=== PATIENT | male | born 1940 | race Caucasian/White ===

== ENCOUNTER 2016-11-13 19:35 | Emergency (ER) | payer MEDICARE, OTHER ==
[2016-11-13 19:52] VITALS: BP 135/61
== END 2016-11-13 20:35 | disposition left against medical advice (07) ==
LOC: ER 19:35
DX: Z53.21 Procedure and treatment not carried out due to patient leaving prior to being seen by health care provider (principal)

== ENCOUNTER 2019-06-26 13:14 | Inpatient (IN) ==
--- NOTE | 2019-06-26 13:20 | ERNOTE ---
Hip Pain HPI - Narrative Date of Service: 06/26/19 Narrative: The patient is a 79 year old male who presents for right hip pain after fall which occurred just [employer]. There are no associated symptoms. The patient reports pain to right hip, 09/17. There are alleviating factors of position. There are aggravating factors of activity or ROM. Previous treatments have included: none. The past medical history includes: anxiety, COPD, depression, HTN, GERD, BPH, seizure and mild mental retardation. The social history is positive for current tobacco use. The patient has had no known ill contacts. Patient states he was walking outside of his home and tripped landing on the cement. Patient denies striking head, LOC or neck pain. - General Time Seen by Provider: 06/26/19 13:18 Source: patient Exam Limitations: no limitations - Pain Score Pain Score #1 Pain Score: 8 - History of Present Illness Timing/Duration: just prior to arrival Hip Pain Location: hip (R) Method of Injury/Prior Injury: fell Modifying Factors - (Improves): Reports: immobilization Modifying Factors - (Worsens): Reports: jarring, movement Associated Symptoms: trouble walking - Immun/Allergies/Home Medications Immunization: IMMUNIZATION HX Immunizations Up to Date Yes History of Influenza Vaccine Yes Hx Pneumococcal Vaccination Yes Allergies/Adverse Reactions: Allergies Allergy/AdvReac Type Severity Reaction Status Date / Time risperidone Allergy Facial Verified 03/02/19 13:06 swelling amoxicillin trihydrate AdvReac Mild Diarrhea Verified 03/02/19 13:06 [From Augmentin] potassium clavula AdvReac Mild Diarrhea Verified 03/02/19 13:06 *RETIRED-09/12/12 [From Augmentin] Home Medications: Ambulatory Orders Medication Instructions Recorded fesoterodine 4 mg tablet,extended 4 mg PO DAILY #90 tab 08/30/18 release 24 hr thiamine HCl (vitamin B1) 100 mg 100 mg PO DAILY #90 tab 08/30/18 tablet acetaminophen 500 mg tablet 500 mg PO BID #60 tab 09/02/18 ascorbic acid (vitamin C) 500 mg See Rx Instructions .ROUTE 09/13/18 tablet .COMPLEX #180 tab capsaicin 0.025 % topical patch 1 patch TP BID PRN MDD 0.050% 11/14/18 peg [id number] 1 1 drp OP QID 11/14/18 %-0.2 %-0.2 % eye drops ipratropium 0.5 mg-albuterol 3 mg 3 ml IH QID #180 ml 11/29/18 (2.5 mg base)/3 mL nebulization soln Durable Medical Equipment 0 .ROUTE .MEDSUPPLY #1 ea 12/21/18 vitamin B complex 1 tab PO .COMPLEX #15 tab 04/03/19 divalproex 250 mg tablet,delayed 500 mg PO HS #180 tab 05/11/19 release escitalopram oxalate 20 mg tablet 20 mg PO DAILY #90 tab 05/11/19 famotidine 20 mg tablet 20 mg PO BID #180 tab 05/11/19 folic acid 1 mg tablet 1 mg PO DAILY #30 tab 05/11/19 loratadine 10 mg tablet 10 mg PO DAILY #90 tab 05/11/19 melatonin 5 mg capsule 5 mg PO QHS #90 cap 05/11/19 mirtazapine 30 mg tablet 30 mg PO DAILY #90 tab 05/11/19 L.acidoph, paracasei,B. lactis 10 1 cell PO DAILY #90 cap 05/12/19 billion cell capsule omeprazole 20 mg tablet,delayed 20 mg PO DAILY #90 tab 05/12/19 release tamsulosin 0.4 mg capsule 0.4 mg PO HS #90 cap 05/12/19 Review of Systems - Review of Systems Constitutional: Present: no symptoms reported. Absent: fatigue, fever, recent illness EENTM: Present: no symptoms reported. Absent: ear pain, sore throat, nasal drainage Respiratory: Present: cough. Absent: short of breath Cardiology: Present: no symptoms reported. Absent: chest pain Gastrointestinal/Abdominal: Present: no symptoms reported. Absent: abdominal pain, diarrhea, vomiting Genitourinary: Present: no symptoms reported. Absent: dysuria Musculoskeletal: Present: joint pain - right hip. Absent: joint swelling Skin: Present: no symptoms reported Neurological: Present: no symptoms reported. Absent: numbness, tingling All Other Systems: All systems neg except as marked Pain Exam - Physical Exam General Appearance: Present: WD/WN, moderate distress Neck Exam: Present: non-tender, full range of motion Cardiovascular/Respiratory: Present: regular rate, rhythm, normal peripheral pulses, normal breath sounds, no respiratory distress Gastrointestinal/Abdominal: Present: normal bowel sounds, no organomegaly, non tender. Absent: distended, guarding Back Exam: Present: no vertebral tenderness Extremity Exam: Present: pelvis stable, bony-point tenderness - right hip, pain with movement, other - normal distal pulses to dorsalis pedis, normal flexion extension to ankle and knee, pain with knee movement to right hip. Neurologic: Present: no motor/sensory deficits, alert, oriented x 3 Skin Exam: Present: normal color, warm/dry, no cyanosis ED Progress - Date and Time Seen: Date and Time: 06/26/19 13:[address] Lazaro via doc halo. We will proceed with work-up for medical clearance and admit to medicine for planned surgery tomorrow. 06/26/19 13:58 Case reviewed with , will admit to medicine. Informed of testing completed during ER course. Patient informed of plan of care and verbalized understanding. - VITAL SIGNS Patient's Vital Signs:: I have reviewed the patient's vital signs. - RESULTS AND ORDERS Patient's Lab Results:: I have reviewed the patient's lab results. - EKG EKG #1 EKG: NSR - bradycardia rate 56 EKG Read: Reviewed by me - X-Ray X-Ray #1 XRAY: chest X-Ray Interpretation: Reviewed by me X-Ray Comments: IMPRESSION: 1. HYPERINFLATION. 2. NO ACUTE CARDIOPULMONARY PROCESS. Electronically signed by Yonatan Olsen M.D.. X-Ray #2 XRAY: hip X-Ray Interpretation: Reviewed by me X-Ray Comments: IMPRESSION: 1. DIFFUSE OSTEOPENIA. 2. NO ACUTE OSSEOUS ABNORMALITY INVOLVING THE AP PELVIS. 3. PREVIOUS OPEN REDUCTION INTERNAL FIXATION OF THE LEFT HIP. 4. ACUTE MILDLY IMPACTED AND DISPLACED RIGHT FEMORAL NECK FRACTURE. Electronically signed by Yonatan Olsen M.D.. Departure - Departure Clinical Impression: Femoral neck fracture Qualifiers: Encounter type: initial encounter Fracture type: closed Laterality: right Qualified Code(s): S72.001A - Fracture of unspecified part of neck of right femur, initial encounter for closed fracture Disposition: Still a patient Condition: Good
[2019-06-26] MEDS ORDERED: ACETAMINOPHEN 1,000 MG/100 ML BTL IV ONE (13:43)
[2019-06-26 13:54] LABS: Hemoglobin 11.4 gm/dL (13.5-18.0); Mean Cell Volume 97.8 fl (78-100); Mean Corpuscular Hemoglobin 31.8 pg (27-31); Mean Corpuscular Hgb Conc 32.6 g/dl (32-36); Mean Platelet Volume 9.5 fl (8-11.3); Neutrophil # 7.1 K/mm3 (1.3-6.0); Platelet Count 304 K/mm3 (150-450); Red Blood Count 3.58 M/mm3 (4.7-6.0); Red Cell Distribution Width 13.6 % (11.5-14.0); White Blood Count 9.5 K/mm3 (4.0-10.5)
[2019-06-26 14:06] LABS: Albumin * 3.7 gm/dl (3.4-5.0); Anion Gap 11.5 mmol/L (6.8-13.8); BUN/Creatinine Ratio 14.9 (9.0-21.6); Bilirubin, Total 0.2 mg/dL (0.0-1.1); Ca. Corrected For Albumin 9.8 mg/dL (8.4-10.2); Calcium * 9.9 mg/dL (7.9-10.9); Carbon Dioxide 29.7 mmol/L (24-32.6); Potassium 4.2 mmol/L (3.4-4.6); Total Protein 7.4 gm/dL (6.2-8.2)
[2019-06-26 14:08] LABS: INR 1.01 INR (0.92-1.08); Partial Thrombolplastin Time 22.2 Seconds (24-32)
[2019-06-26] MEDS: NORMAL SALINE 1,000 ML IV PRN (14:44)
--- NOTE | 2019-06-26 16:07 | CONS ---
- Reason for consultation (1) Fracture of right hip Date of Service: 06/26/19 HPI - General Date of Service: 06/26/19 Narrative: 79-year-old male presents to the ER right hip pain status post fall. Past medical history COPD, left intertrochanteric femur fracture, mild mental retardation, as well as other problems. Patient is alert and states that he fell at home and has had significant left hip pain. He was brought to the ER for care. He was admitted after a right femoral neck fracture was found on x- ray. This is consistent with patient's symptoms he notes he cannot weight-bear very well. He has significant pain with motion with his right hip. Patient notes no other current symptoms. It is mildly difficult to obtain a appropriate history as patient has clear mild mental impairment. Source: patient - History of Present Illness Allergies/Adverse Reactions: Allergies risperidone Allergy (Verified 06/26/19 14:54) Facial swelling amoxicillin trihydrate [From Augmentin] Adverse Reaction (Mild, Verified 06/26/19 14:54) Diarrhea potassium clavula *RETIRED-09/12/12 [From Augmentin] Adverse Reaction (Mild, Verified 06/26/19 14:54) Diarrhea Home Medications: Home Medications Medication Instructions Recorded Last Taken fesoterodine 4 mg tablet,extended 4 mg PO DAILY #90 tab 08/30/18 Unknown release 24 hr thiamine HCl (vitamin B1) 100 mg 100 mg PO DAILY #90 tab 08/30/18 Unknown tablet acetaminophen 500 mg tablet 500 mg PO BID #60 tab 09/02/18 Unknown ascorbic acid (vitamin C) 500 mg See Rx Instructions .ROUTE 09/13/18 Unknown tablet .COMPLEX #180 tab capsaicin 0.025 % topical patch 1 patch TP BID PRN MDD 0.050% 11/14/18 Unknown peg [id number] 1 1 drp OP QID 11/14/18 Unknown %-0.2 %-0.2 % eye drops ipratropium 0.5 mg-albuterol 3 mg 3 ml IH QID #180 ml 11/29/18 Unknown (2.5 mg base)/3 mL nebulization soln Durable Medical Equipment 0 .ROUTE .MEDSUPPLY #1 ea 12/21/18 Unknown vitamin B complex 1 tab PO .COMPLEX #15 tab 04/03/19 Unknown divalproex 250 mg tablet,delayed 500 mg PO HS #180 tab 05/11/19 Unknown release escitalopram oxalate 20 mg tablet 20 mg PO DAILY #90 tab 05/11/19 Unknown famotidine 20 mg tablet 20 mg PO BID #180 tab 05/11/19 Unknown folic acid 1 mg tablet 1 mg PO DAILY #30 tab 05/11/19 Unknown loratadine 10 mg tablet 10 mg PO DAILY #90 tab 05/11/19 Unknown melatonin 5 mg capsule 5 mg PO QHS #90 cap 05/11/19 Unknown mirtazapine 30 mg tablet 30 mg PO DAILY #90 tab 05/11/19 Unknown L.acidoph, paracasei,B. lactis 10 1 cell PO DAILY #90 cap 05/12/19 Unknown billion cell capsule omeprazole 20 mg tablet,delayed 20 mg PO DAILY #90 tab 05/12/19 Unknown release tamsulosin 0.4 mg capsule 0.4 mg PO HS #90 cap 05/12/19 Unknown Procedures Bursectomy (06/02/05) Closure of skin and subcutaneous tissue of other sites (07/07/08) Nonexcisional debridement of wound, infection or burn (07/23/05) PARTIAL OSTECTOMY NEC (11/30/08) Repair of claw toe (01/18/02) Medications - Medications Current Medications: Current Medications Sodium Chloride (Sodium Chloride 0.9%) 1,000 mls @ 80 mls/hr IV .[id number] PRN PRN Reason: HYDRATION Stop: 07/26/19 14:13 Last Admin: 06/26/19 14:44 Dose: 80 mls/hr Documented by: Physical Examination - Exam Vital Signs: Vital Signs - Last Taken Temp 37.2 C 06/26/19 14:56 Pulse 65 06/26/19 14:56 Resp 18 06/26/19 14:56 BP 185/60 H 06/26/19 14:56 Pulse Ox 95 06/26/19 14:56 O2 Oxygen Delivery Method Room Air Constitutional: Present: Alert, Cooperative, No distress Extremity: Present: other - RLE--> no obvious wounds or deformity, diffuse decreased range of motion at the hip, full apparent functional range of motion of the knee and ankle, sensation intact light touch, distal capillary refill brisk, diffuse pain tenderness palpation about right hip Eye contact: Present: cooperative - Results and Findings: Lab/Microbiology results last 24 hrs: Abnormal/Pending Laboratory Last 24 HRS 06/26/19 06/26/19 06/26/19 13:45 13:45 13:45 RBC 3.58 L Hgb 11.4 L Hct 35.0 L MCH 31.8 H Immature Gran % (Auto) 0.50 H Immature Gran # (Auto) 0.05 H Lymphocytes % 18.4 L Neutrophils # 7.1 H PTT (Avis) 22.2 L Creatinine 1.54 H Est GFR (Non-Af Amer) 46 L ALT 13 L - Assessments/Findings (1) Fracture of right hip Problem: Acute Plan - Plan Plan: -79 y/o male presents with a right femoral neck fracture -Discussed with patient and witness conservative or surgical intervention as well as possible risks versus benefits including but not limited to infection, malunion versus nonunion fracture healing, continued pain, weightbearing status. Overall patient appears to expressed understanding consent was marked and plan to proceed with surgical intervention on 06/27/2019 with right hemiarthroplasty for femoral neck fracture. Due to patient's mental impairment extensive evaluation was performed towards defining patient's POA. Note he is his own POA and previously signed a consent for surgery on his left hip with a previous fracture. Called contacts in patient's chart they are both either friends or individuals to help patient with his activities of daily living. They both note that there is no significant family or other individuals to contact. Due to patient's normal amatory status of weightbearing as tolerated with a walker and wished to proceed to return him to this agree that surgical intervention is warranted. Patient would be unable to perform significantly weightbearing activities for extended period of time due to fracture as well as could have significant complications if surgery was avoided at this time. Expressed this to the patient he appears to expressed understanding towards proceeding with surgery. All questions were answered for the patient including when the surgery would be. Will follow up with patient prior to surgical intervention tomorrow. Patient still must undergo medical evaluation and clearance with medicine team.
[2019-06-26] MEDS ORDERED: ceFAZolin SODIUM 1 GM in DEXTROSE 5 % IN WATER 100 ML IV PRN ×2 (16:45)
[2019-06-26] MEDS ORDERED: ceFAZolin SODIUM 1 GM in DEXTROSE 5 % IN WATER 100 ML IV ONE ×2 (16:45)
[2019-06-26] MEDS: MORPHINE SULFATE 2 MG/ML DISP.SYRIN IV PRN ×2 (17:05→23:52)
[2019-06-26] MEDS: MELATONIN 3,000 MCG TABLET PO SCH (22:39)
[2019-06-26] MEDS: TAMSULOSIN HCL 0.4 MG CAP.SR.24H PO SCH (22:40)
[2019-06-26] MEDS: DIVALPROEX SODIUM 500 MG TAB.SR.24H PO SCH (22:40)
[2019-06-26] MEDS ORDERED: MIRTAZAPINE 15 MG TABLET PO SCH (22:45)
--- NOTE | 2019-06-26 23:22 | HP ---
Chief Complaint - Chief Complaint Date of Service: 06/26/19 Time of Service: 23:07 Chief Complaint: Right hip pain History of Present Illness: 79-year-old male with mild cognitive deficit presented to the ER after ground-level fall which resulted in right hip pain. X-ray showed acute mildly impacted displaced right femoral neck fracture. Patient admitted as inpatient after consultation with Ortho who agreed to patient back tomorrow morning for right hemiarthroplasty of the femoral neck. Patient has a mildly elevated acute kidney injury with a creatinine of 1.54. Patient is also mildly anemic with a hemoglobin of just above 11. Will monitor both. Patient currently on lactated Ringer's. Patient has history of seizure disorder, COPD, anxiety and depression. Unsure of how well controlled he is due to patient being a poor historian. Patient does appear to understand what is about to take place though and is in agreement with proceeding with the surgery. Medical History (Last Reviewed 06/26/19 @ 14:53 by Julianne Rubio RN) Weakness (Chronic) Onset Date: Unknown Urinary incontinence (Chronic) Onset Date: Unknown Seizures (Chronic) Onset Date: Unknown Mild mental retardation (Chronic) Onset Date: Unknown Essential hypertension (Chronic) Onset Date: Unknown GERD (gastroesophageal reflux disease) (Chronic) Onset Date: Unknown Depression (Chronic) Onset Date: Unknown COPD (chronic obstructive pulmonary disease) (Chronic) Onset Date: ~2012 Anxiety (Chronic) Onset Date: Unknown History of BPH History of COPD History of intellectual disability Hx of gastroesophageal reflux (GERD) GI bleed Onset Date: Unknown Surgical History: Surgical History (Last Reviewed 06/26/19 @ 14:53 by Julianne Rubio RN) H/O local excision of skin lesion Onset Date: ~2011 Mutchler-left eyelid-seborrheic keratosis. H/O toe surgery Onset Date: ~2008 Saathoff-resection of head from middle phalanx with OrthoSorb pin fixation, second toe, left. History of bursectomy Onset Date: ~2005 Richard- left olecranon bursectomy History of colonoscopy Onset Date: ~2014 Tinguely-scattered sigmoid diverticulosis. Recheck 10 yrs. History of open reduction and internal fixation (ORIF) procedure Onset Date: ~2016 ORIF Left hip Family History: Family History (Last Reviewed 06/26/19 @ 14:53 by Julianne Rubio RN) Father Cancer colon cancer Mother blood clot Sister No problems noted. Brother No problems noted. Social History: (Last Reviewed 06/26/19 @ 14:54 by Julianne Rubio RN) Social History: Marital status: Single Highest education level completed: 3rd grade Service: No Tobacco: Smoking Status: Current every day smoker Alcohol: alcohol intake: former Dietary Habits: caffeine: Yes Review Of Systems (GEN) - Review of Systems Generalized/Overall Review: Absent: Weakness, Chills, Fever EENTM: Present: No Symptoms Reported Respiratory: Absent: Cough, Shortness of Breath Cardiac: Absent: Chest Pain, Edema Abdominal: Absent: Nausea, Vomiting, Abdominal Pain Musculoskeletal: Present: Joint Pain - Right hip. Absent: Back Pain, Muscle P ain Skin: Present: No Symptoms Reported Endocrine: Present: No Symptoms Reported Immunizations: IMMUNIZATION HX Immunizations Up to Date Yes History of Influenza Vaccine Yes Hx Pneumococcal Vaccination Yes Allergies/Adverse Reactions: Allergies Allergy/AdvReac Type Severity Reaction Status Date / Time risperidone Allergy Facial Verified 06/26/19 14:54 swelling amoxicillin trihydrate AdvReac Mild Diarrhea Verified 06/26/19 14:54 [From Augmentin] potassium clavula AdvReac Mild Diarrhea Verified 06/26/19 14:54 *RETIRED-09/12/12 [From Augmentin] Home Medications: HOME MEDICATIONS thiamine HCl (vitamin B1) 100 mg tablet 100 mg PO DAILY #90 tab 08/30/18 [Last Taken Unknown] acetaminophen 500 mg tablet 500 mg PO BID #60 tab 09/02/18 [Last Taken Unknown] capsaicin 0.025 % topical patch 1 patch TP BID PRN MDD 0.050% 11/14/18 [Last Taken Unknown] peg [id number] 1 %-0.2 %-0.2 % eye drops 1 drp OP QID 11/14/18 [Last Taken Unknown] ipratropium 0.5 mg-albuterol 3 mg (2.5 mg base)/3 mL nebulization soln 3 ml IH QID #180 ml 11/29/18 [Last Taken Unknown] Durable Medical Equipment 0 .ROUTE .MEDSUPPLY #1 ea 12/21/18 [Last Taken Unknown] vitamin B complex 1 tab PO .COMPLEX #15 tab 04/03/19 [Last Taken Unknown] escitalopram oxalate 20 mg tablet 20 mg PO DAILY #90 tab 05/11/19 [Last Taken Unknown] famotidine 20 mg tablet 20 mg PO BID #180 tab 05/11/19 [Last Taken Unknown] folic acid 1 mg tablet 1 mg PO DAILY #30 tab 05/11/19 [Last Taken Unknown] loratadine 10 mg tablet 10 mg PO DAILY #90 tab 05/11/19 [Last Taken Unknown] melatonin 5 mg capsule 5 mg PO QHS #90 cap 05/11/19 [Last Taken Unknown] mirtazapine 30 mg tablet 30 mg PO DAILY #90 tab 05/11/19 [Last Taken Unknown] L.acidoph, paracasei,B. lactis 10 billion cell capsule 1 cell PO DAILY #90 cap 05/12/19 [Last Taken Unknown] omeprazole 20 mg tablet,delayed release 20 mg PO DAILY #90 tab 05/12/19 [Last Taken Unknown] tamsulosin 0.4 mg capsule 0.4 mg PO HS #90 cap 05/12/19 [Last Taken Unknown] Ascorbic Acid [Vitamin C] 500 mg PO BID 06/26/19 [Last Taken Unknown] Aspirin [Aspirin EC] 325 mg PO BID 06/26/19 [Last Taken Unknown] Calcium Carbonate/Vitamin D3 [Calcium 600-Vit D3 800 Caplet] 1 ea PO BID 06/26/19 [Last Taken Unknown] Divalproex Sodium [Depakote] 500 mg PO DAILY 06/26/19 [Last Taken Unknown] Fesoterodine Fumarate [Toviaz] 4 mg PO DAILY 06/26/19 [Last Taken Unknown] Vitamin B Complex [Balanced B-50] 1 ea PO Q2D 06/26/19 [Last Taken Unknown] amLODIPine BESYLATE [Norvasc] 10 mg PO DAILY 06/26/19 [Last Taken Unknown] Exam - Exam Vital Signs: Vital Signs - Last Taken Temp 37.1 C 06/26/19 18:29 Pulse 65 06/26/19 18:29 Resp 15 06/26/19 18:29 BP 169/67 H 06/26/19 18:29 Pulse Ox 93 06/26/19 18:29 Constitutional: Present: Alert, Cooperative, Mild distress, Elderly ENT Exam: Present: hearing grossly normal. Absent: nasal congestion, nasal drainage Neck: Present: non-tender, full range of motion Respiratory: Present: lungs clear, normal breath sounds, decreased breath sounds - Minimal, bilateral bases. Absent: wheezing Cardiovascular/Chest: Present: regular rate, rhythm, systolic murmur - 2+/6 Peripheral Pulses: dorsalis-pedis (R): 2+, dorsalis-pedis (L): 2+ Abdomen: Present: Normal bowel sounds, soft, nontender, nondistended Extremity: Present: leg pain, other - Slightly elongated right lower extremity internally rotated Skin Exam: Present: normal color, warm/dry Appearance: Present: appropriate appearance, impaired insight - Minimal Eye contact: Present: cooperative, good eye contact Diagnostic Studies: Abnormal Lab Results 06/26/19 06/26/19 06/26/19 Range/Units 13:45 13:45 13:45 RBC 3.58 L (4.7-6.0) M/mm3 Hgb 11.4 L (13.5-18.0) gm/dL Hct 35.0 L (42.0-52.0) % MCH 31.8 H (27-31) pg Immature Gran % (Auto) 0.50 H (0.001-0.429) % Immature Gran # (Auto) 0.05 H (0.000-0.0310) K/mm3 Lymphocytes % 18.4 L (20-51) % Neutrophils # 7.1 H (1.3-6.0) K/mm3 PTT (Avis) 22.2 L (24-32) Seconds Creatinine 1.54 H (0.4-1.4) mg/dL Est GFR (Non-Af Amer) 46 L (60-130) mL/min ALT 13 L (19-67) U/L Laboratory Results WBC 9.5 K/mm3 (4.0-10.5) 06/26/19 13:45 RBC 3.58 M/mm3 (4.7-6.0) L 06/26/19 13:45 Hgb 11.4 gm/dL (13.5-18.0) L 06/26/19 13:45 Hct 35.0 % (42.0-52.0) L 06/26/19 13:45 MCV 97.8 fl (78-100) 06/26/19 13:45 MCH 31.8 pg (27-31) H 06/26/19 13:45 MCHC 32.6 g/dl (32-36) 06/26/19 13:45 RDW 13.6 % (11.5-14.0) 06/26/19 13:45 Plt Count 304 K/mm3 (150-450) 06/26/19 13:45 MPV 9.5 fl (8-11.3) 06/26/19 13:45 Immature Gran % (Auto) 0.50 % (0.001-0.429) H 06/26/19 13:45 Immature Gran # (Auto) 0.05 K/mm3 (0.000-0.0310) H 06/26/19 13:45 Neutrophils % 75.0 % (42-75.0) 06/26/19 13:45 Lymphocytes % 18.4 % (20-51) L 06/26/19 13:45 Monocytes % 4.1 % (0.0-9) 06/26/19 13:45 Eosinophils % 1.4 % (0.0-3.0) 06/26/19 13:45 Basophils % 0.6 % (0.0-1.0) 06/26/19 13:45 Nucleated RBC % 0.0 k/mm3 (0-1) 06/26/19 13:45 Neutrophils # 7.1 K/mm3 (1.3-6.0) H 06/26/19 13:45 Lymphocytes # 1.75 k/mm3 (1.5-3.5) 06/26/19 13:45 Monocytes # 0.4 k/mm3 (0.0-1.0) 06/26/19 13:45 Eosinophils # 0.1 k/mm3 (0.0-0.7) 06/26/19 13:45 Absolute Basophils 0.1 k/mm3 (0.0-0.1) 06/26/19 13:45 PT 10.0 Seconds (9.1-10.7) 06/26/19 13:45 INR (Anticoag Therapy) 1.01 INR (0.92-1.08) 06/26/19 13:45 PTT (Avis) 22.2 Seconds (24-32) L 06/26/19 13:45 Sodium 140 mmol/L (132-142) 06/26/19 13:45 Plasma Sodium 140 mmol/L (130-142) 06/26/19 13:45 Potassium 4.2 mmol/L (3.4-4.6) 06/26/19 13:45 Chloride 103 mmol/L (97-106) 06/26/19 13:45 Carbon Dioxide 29.7 mmol/L (24-32.6) 06/26/19 13:45 Anion Gap 11.5 mmol/L (6.8-13.8) 06/26/19 13:45 BUN 23 mg/dL (6-23) 06/26/19 13:45 Creatinine 1.54 mg/dL (0.4-1.4) H 06/26/19 13:45 Est GFR (Non-Af Amer) 46 mL/min (60-130) L 06/26/19 13:45 BUN/Creatinine Ratio 14.9 (9.0-21.6) 06/26/19 13:45 Random Glucose 102 mg/dL (70-110) 06/26/19 13:45 Calcium 9.9 mg/dL (7.9-10.9) 06/26/19 13:45 Calcium Adj for Albumin 9.8 mg/dL (8.4-10.2) 06/26/19 13:45 Total Bilirubin 0.2 mg/dL (0.0-1.1) 06/26/19 13:45 AST 17 U/L (0-48) 06/26/19 13:45 ALT 13 U/L (19-67) L 06/26/19 13:45 Alkaline Phosphatase 61 U/L (50-170) 06/26/19 13:45 Total Protein 7.4 gm/dL (6.2-8.2) 06/26/19 13:45 Albumin 3.7 gm/dl (3.4-5.0) 06/26/19 13:45 Assessment/Plan - Narrative Narrative: 79-year-old male with history of mild cognitive impairment, COPD, anxiety and depression, essential hypertension admitted for a right intertrochanteric femur fracture with plans for repair tomorrow with Dr. Lazaro. Jesus Manuel Galaviz discussed risks versus benefits with patient who is in agreement with proceeding with the repair. Patient currently n.p.o. at midnight, has lactated Ringer's running at 175 an hour. Patient seizure medication given this evening. Hydralazine ordered as needed for pressures greater than 160 systolically. SCDs currently on for DVT prophylaxis. Other medications currently being held until following surgery. Will repeat blood work following his operation to monitor acute blood loss as well as kidney function. Patient cleared from a medical standpoint to proceed with surgery as his labs and vital signs are stable. Nurse will call questions or concerns. - Assessment/Plan (1) Fracture, intertrochanteric, right femur Problem: Acute (2) Acute kidney injury Problem: Acute (3) Seizures Problem: Chronic (4) Essential hypertension Problem: Chronic (5) Mild mental retardation Problem: Chronic (6) COPD (chronic obstructive pulmonary disease) Problem: Chronic
[2019-06-26] MEDS: hydrALAZINE HCL 20 MG/ML VIAL IV PRN (23:40)
[2019-06-27] MEDS: MORPHINE SULFATE 2 MG/ML DISP.SYRIN IV PRN ×4 (02:22→12:18)
[2019-06-27] MEDS: NORMAL SALINE 1,000 ML IV PRN ×3 (02:29→14:05)
[2019-06-27] MEDS ORDERED: ACETAMINOPHEN 500 MG TABLET PO PRN (03:32)
[2019-06-27] MEDS ORDERED: TRANEXAMIC ACID 1,000 MG in NORMAL SALINE 100 ML IV PRN (06:00)
[2019-06-27] MEDS ORDERED: ceFAZolin SODIUM 1 GM VIAL IV PRN (06:00)
[2019-06-27] MEDS ORDERED: RINGER'S SOLUTION,LACTATED 1,000 ML IV PRN (06:00)
[2019-06-27] MEDS ORDERED: ROPIVACAINE HCL/PF 100 MG, EPINEPHrine 0.2 MG, KETOROLAC TROMETHAMINE 15 MG in NORMAL S... IJ PRN (06:00)
--- NOTE | 2019-06-27 09:08 | PN ---
Subjective - Date and Time Seen Date: 06/27/19 Time: 09:04 Subjective Narrative: Patient still reports right hip pain. Note he still has mild chronic mental deficits. He expresses that he knows he can go to surgery today. He notes his pain is worse with movement better with rest. No other acute complications. Objective - Vitals Vitals: Last Vital Signs Temp 37.2 C 06/27/19 07:08 Pulse 67 06/27/19 07:08 Resp 16 06/27/19 07:08 BP 145/72 06/27/19 07:08 Pulse Ox 94 06/27/19 07:08 - Abnormal Lab Findings Abnormal Lab Findings: Abnormal Lab Results 06/26/19 06/26/19 06/26/19 Range/Units 13:45 13:45 13:45 RBC 3.58 L (4.7-6.0) M/mm3 Hgb 11.4 L (13.5-18.0) gm/dL Hct 35.0 L (42.0-52.0) % MCH 31.8 H (27-31) pg Immature Gran % (Auto) 0.50 H (0.001-0.429) % Immature Gran # (Auto) 0.05 H (0.000-0.0310) K/mm3 Lymphocytes % 18.4 L (20-51) % Neutrophils # 7.1 H (1.3-6.0) K/mm3 PTT (Avis) 22.2 L (24-32) Seconds Creatinine 1.54 H (0.4-1.4) mg/dL Est GFR (Non-Af Amer) 46 L (60-130) mL/min ALT 13 L (19-67) U/L - Exam Constitutional: Present: Alert, Cooperative, Mild distress Respiratory: Present: no respiratory distress Extremity: Present: other - RLE--> wounds or deformity, sensation intact light touch, diffuse tenderness to palpation over right hip, distal capillary refill brisk, spontaneous movement in limb with pain Skin Exam: Present: normal color, warm/dry Cauti Physician Documentation - Urinary Catheter Management Coude Date of Insertion: 06/26/19 Time of Insertion: 17:15 Assessment/Plan Plan Narrative: -79-year-old male with right femoral neck fracture. Plan to undergo surgical intervention on 06/27/2019 for a right hemiarthroplasty. Consent has been obtained, questions have been answered, patient was evaluated by medicine and agreed to proceed with surgical intervention. Note patient did have a mild fever overnight, he has given Tylenol. Note patient did not come in with any significant respiratory symptoms. Throughout my exams I have not witnessed any significant respiratory distress or coughing. Noting that he does have a fever patient will be transition to COVID-19 precautions. Discussed this with our infectious disease personnel. Due to patient's mental status as well as significant fracture will swab for COVID-19 for possible [place] [facility] placement postoperatively. This is also been discussed with Dr. Lundberg and he agrees to proceed with this plan of management. We will continue to monitor the patient postoperatively. - Problems/Diagnosis (1) Fracture of right hip Problem: Acute Qualifiers: Encounter type: initial encounter Fracture type: closed Qualified Code(s): S72.001A - Fracture of unspecified part of neck of right femur, initial encounter for closed fracture
[2019-06-27] MEDS ORDERED: VANCOMYCIN HCL 1 GM VIAL ONE (10:11)
[2019-06-27] MEDS: hydrALAZINE HCL 20 MG/ML VIAL IV PRN ×3 (10:25→22:18)
[2019-06-27] MEDS ORDERED: ISOPROPYL ALCOHOL 480 APPL BTL MC ONE (10:30)
[2019-06-27] MEDS ORDERED: PROPOFOL VIAL IV ONE (12:25)
[2019-06-27] MEDS ORDERED: BUPIVACAINE HCL/PF 10 ML VIAL ONE (12:25)
[2019-06-27] MEDS ORDERED: ceFAZolin SODIUM 1 GM VIAL ONE (12:39)
[2019-06-27] MEDS ORDERED: VANCOMYCIN HCL 1 GM VIAL TP ONE (14:30)
[2019-06-27] MEDS ORDERED: MAGNESIUM HYDROXIDE 30 ML UDC PO PRN (14:51)
[2019-06-27] MEDS ORDERED: MORPHINE SULFATE 2 MG/ML DISP.SYRIN IV PRN (14:51)
[2019-06-27] MEDS ORDERED: ONDANSETRON HCL/PF 2 MG/ML VIAL IV PRN (14:51)
[2019-06-27] MEDS ORDERED: NORMAL SALINE 1,000 ML IV PRN (14:51)
[2019-06-27] MEDS ORDERED: MAG HYDROX/ALUMINUM HYD/SIMETH 30 ML UDC PO PRN (14:51)
--- NOTE | 2019-06-27 15:02 | OR ---
Operative Report - Dictated Report Narrative: Date: 06/27/2019 Preoperative diagnosis: Displaced right femoral neck fracture Postoperative diagnosis: Displaced right femoral neck fracture Procedure: Right hip uncemented hemiarthroplasty. Surgeon: Aurelio Lazaro M.D. Primary Care Md: Jesus Manuel Galaviz PA-C Anesthesia: Spinal. Complications: None Specimens: Femoral head Estimated blood loss: 200 milliliters. Retained implants: Depuy Corail size 12 standard femoral stem. Size 49 millimeter ouside diameter self-centering bipolar head with + 1.5 millimeter cobalt chromium 28 mm femoral head. Indications: Ramesh is a 79-year-old male with a history of mild mental retardation, COPD, and previous left hip fracture who fell from standing height at home and sustained a displaced right femoral neck fracture. He was initially evaluated in the emergency department where work-up revealed the above injury. No other injuries were noted. He was also medically stable at the time of evaluation. He was admitted to the medicine service and orthopedics was consulted for management of his hip fracture. 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 Patient wished to proceed with surgical treatment. The risks, benefits, and alternatives discussed were , blood clots, bleeding, infection, nerve/tendon blood vessel/ injury, malposition of components, dislocation and/or instability of joint, intraoperative fracture, postoperative limited range of motion, persistent pain, failure of components, and need for additional procedures. Patient wished to proceed. Consent was obtained after answering all questions. Procedure: After marking the correct extremity on the floor, the patient was taken to the operating room. A timeout was performed. IV antibiotics consisting of 1 g of Ancef were administered prior to the procedure. A spinal anesthetic was induced by anesthesia. A Roach catheter was already in place. The patient was then transitioned to a left lateral decubitus position on a well-padded pegboard. And an axillary roll was placed. The head was in neutral position. The non-operative down leg was well-padded with SCD and SHELBY hose in place. The arms were supported and padded to protect from any undue pressure on the bony prominences and nerves. Well-padded anterior and posterior pelvic and chest posts were secured in order to maintain a stable position of the pelvis. This was placed so that the pelvis was perpendicular to the floor. The body was in line with the pelvis. Once it was felt that we had protected all the bony prominences and the patient was well secured with a safety belt as well, the leg was pre-scrubbed with alcohol, prepped and draped in a standard sterile fashion. A standard anterolateral hip incision was marked out over the greater trochanter. Ioban drapes were then placed. The skin incision was then made. Sharp dissection with a scalpel utilizing cautery for hemostasis was carried out down to the gluteus and iliotibial band fascia. This was split in line with the skin incision. The greater trochanter bursa was excised. The anterior and posterior margins of the abductor tendon were identified. The anterior 1/3 of the tendon was tagged and reflected off the greater trochanter leaving a sleeve of tendon for repair at the completion of the case. This exposed the underlying hip joint capsule. An inverted T-type capsulotomy was made extending this up to the brim of the acetabulum. We encountered a hematoma at this point confirming an acute fracture as well as noted displacement of the femoral neck fracture. Using Apryl retractors to assist with elevation of the soft tissues off the anterior, superior, and inferior aspects of the femoral neck, the hip was then placed in a figure 4 position and the femoral neck cleanup cut was then made. With the leg in an externally rotated and adducted position, the cutting flag was utilized in order to loan for a low femoral neck cut approximately 8 mm above the level of the lesser trochanter. This was done while protecting the surrounding soft tissues with Apryl retractors. The femoral head was then removed and sized for guidance on the size of the bipolar head. It was noted that there was mild loss of articular cartilage on both the femoral head and weightbearing portions of the acetabulum. We then returned the leg to the table and turned our attention to the acetabulum. While protecting the surrounding soft tissues, the labrum and remaining tissue in the fovea were excised using a scalpel and cautery. This was then protected with a sponge while we returned our attention to the femur. With the leg in a figure 4 position utilizing Apryl retractors for soft tissue protection, a box cutting osteotome, followed by Charnley awl, followed by serial impaction broaches were utilized in order to prepare the femur. It was found that a size 12 broach gave good axial and rotational stability. At this point we elected to place the final femoral stem and trial off of that. A size 12 Corail standard femoral stem was impacted into place. The proximal femur was visualized to ensure that there were no signs of fracture. A series of heads were trialed. It was found that a + 1.5 mm femoral head gave good overall stability. There is minimal longitudinal instability. With the leg in the position of sleep the femoral head was well covered. Hip range of motion was able to reach full extension and external rotation to greater than 75 degrees prior to impingement along the posterior acetabulum. The hip was able to be flexed to greater than 90 degrees with internal rotation greater than 60 degrees prior to anterior impingement. The limb lengths were near equal based on comparison to the contralateral side. This point we felt that these were the adequate size implants and the joint was copiously irrigated with normal saline. 1 g of vancomycin powder was placed in the joint. The capsule was repaired with interrupted #1 Vicryl. The abductor tendon was repaired to the greater trochanter utilizing #5 Ethibond through bone tunnels. This was oversewn with #1 Vicryl. The fascia was closed with running barbed 0 PDS suture. The wounds were thoroughly irrigated as we closed in layers. The deep fat layers were closed with running barbed 0 PDS suture and the dermis was approximated with interrupted 3-0 Vicryl. The skin was closed with abby. All sponge, needle, blade, and instrument counts were correct prior to closing the wounds. Sterile dressings consisting of Xeroform, 4 x 4's, ABD, and tape were applied. The patient was awoken and transferred to the hospital bed and then to the postanesthesia care unit in stable condition. Postoperative condition: The plan is to return to the medical/surgical inpatient floor postoperatively. Postoperatively 24 hours of IV antibiotics, pain control, physical therapy, occupational therapy, and medical comanagement will be utilized. Patient will be weightbearing as tolerated with anterior hip precautions. Postoperative films will be obtained in the recovery room.
--- NOTE | 2019-06-27 15:08 | ANES ---
Post Anesthesia Discharge - Transfer of Care Transfer of Care handoff given to nurse: Yes - Discharge from PACU Discharge from PACU when meets criteria: Yes
--- NOTE | 2019-06-27 15:08 | ANES ---
Anesthesia Pre Procedure Eval Vitals/Labs: Last Vital Signs Temp 36.6 C 06/27/19 14:55 Pulse 66 06/27/19 15:05 Resp 18 06/27/19 15:05 BP 99/61 06/27/19 15:05 Pulse Ox 99 06/27/19 15:05 HOME MEDICATIONS thiamine HCl (vitamin B1) 100 mg tablet 100 mg PO DAILY #90 tab 08/30/18 [Last Taken Unknown] acetaminophen 500 mg tablet 500 mg PO BID #60 tab 09/02/18 [Last Taken Unknown] capsaicin 0.025 % topical patch 1 patch TP BID PRN MDD 0.050% 11/14/18 [Last Taken Unknown] peg [id number] 1 %-0.2 %-0.2 % eye drops 1 drp OP QID 11/14/18 [Last Taken Unknown] ipratropium 0.5 mg-albuterol 3 mg (2.5 mg base)/3 mL nebulization soln 3 ml IH QID #180 ml 11/29/18 [Last Taken Unknown] Durable Medical Equipment 0 .ROUTE .MEDSUPPLY #1 ea 12/21/18 [Last Taken Unknown] vitamin B complex 1 tab PO .COMPLEX #15 tab 04/03/19 [Last Taken Unknown] escitalopram oxalate 20 mg tablet 20 mg PO DAILY #90 tab 05/11/19 [Last Taken Unknown] famotidine 20 mg tablet 20 mg PO BID #180 tab 05/11/19 [Last Taken Unknown] folic acid 1 mg tablet 1 mg PO DAILY #30 tab 05/11/19 [Last Taken Unknown] loratadine 10 mg tablet 10 mg PO DAILY #90 tab 05/11/19 [Last Taken Unknown] melatonin 5 mg capsule 5 mg PO QHS #90 cap 05/11/19 [Last Taken Unknown] mirtazapine 30 mg tablet 30 mg PO DAILY #90 tab 05/11/19 [Last Taken Unknown] L.acidoph, paracasei,B. lactis 10 billion cell capsule 1 cell PO DAILY #90 cap 05/12/19 [Last Taken Unknown] omeprazole 20 mg tablet,delayed release 20 mg PO DAILY #90 tab 05/12/19 [Last Taken Unknown] tamsulosin 0.4 mg capsule 0.4 mg PO HS #90 cap 05/12/19 [Last Taken Unknown] Ascorbic Acid [Vitamin C] 500 mg PO BID 06/26/19 [Last Taken Unknown] Aspirin [Aspirin EC] 325 mg PO BID 06/26/19 [Last Taken Unknown] Calcium Carbonate/Vitamin D3 [Calcium 600-Vit D3 800 Caplet] 1 ea PO BID 06/26/19 [Last Taken Unknown] Divalproex Sodium [Depakote] 500 mg PO DAILY 06/26/19 [Last Taken Unknown] Fesoterodine Fumarate [Toviaz] 4 mg PO DAILY 06/26/19 [Last Taken Unknown] Vitamin B Complex [Balanced B-50] 1 ea PO Q2D 06/26/19 [Last Taken Unknown] amLODIPine BESYLATE [Norvasc] 10 mg PO DAILY 06/26/19 [Last Taken Unknown] Allergies/Adverse Reactions: Allergies Allergy/AdvReac Type Severity Reaction Status Date / Time risperidone Allergy Facial Verified 06/26/19 14:54 swelling amoxicillin trihydrate AdvReac Mild Diarrhea Verified 06/26/19 14:54 [From Augmentin] potassium clavula AdvReac Mild Diarrhea Verified 06/26/19 14:54 *RETIRED-09/12/12 [From Augmentin] - Planned Procedure Planned Procedure: rt femoral neck fx Medication List Reviewed:: Yes Allergies Verified: Yes Medical History (Last Reviewed 06/27/19 @ 15:07 by Teo Grimaldo CRNA) Weakness (Chronic) Onset Date: Unknown Urinary incontinence (Chronic) Onset Date: Unknown Seizures (Chronic) Onset Date: Unknown Mild mental retardation (Chronic) Onset Date: Unknown Essential hypertension (Chronic) Onset Date: Unknown GERD (gastroesophageal reflux disease) (Chronic) Onset Date: Unknown Depression (Chronic) Onset Date: Unknown COPD (chronic obstructive pulmonary disease) (Chronic) Onset Date: ~2012 Anxiety (Chronic) Onset Date: Unknown History of BPH History of COPD History of intellectual disability Hx of gastroesophageal reflux (GERD) GI bleed Onset Date: Unknown Surgical History (Last Reviewed 06/27/19 @ 15:07 by Teo Grimaldo CRNA) H/O local excision of skin lesion Onset Date: ~2011 Mutchler-left eyelid-seborrheic keratosis. H/O toe surgery Onset Date: ~2008 Saathoff-resection of head from middle phalanx with OrthoSorb pin fixation, second toe, left. History of bursectomy Onset Date: ~2005 Richard- left olecranon bursectomy History of colonoscopy Onset Date: ~2014 Tinguely-scattered sigmoid diverticulosis. Recheck 10 yrs. History of open reduction and internal fixation (ORIF) procedure Onset Date: ~2016 ORIF Left hip Family History (Last Reviewed 06/27/19 @ 15:07 by Teo Grimaldo CRNA) Father Cancer colon cancer Mother blood clot Sister No problems noted. Brother No problems noted. - Family Anesthesia History Family History:: no untoward family reactions to anesthesia - Airway/Neck/Teeth Within Normal Limits:: Yes Denture Type: None Neck Exam: full range of motion Mallampatti Score: 2 Thyromental (T-M) distance: > 6 cm Mandibulo Hyoid distance: > 3 cm - Respiratory Respiratory History: COPD Respiratory Physical: lungs clear Smoking Status: Current every day smoker Sleep Apnea currently treated: No Sleep Apnea by current assessment: No - Cardiovascular Cardiac History: hypertension Tolerate Activity: Fair Heart Sounds: S1 & S2, Regular - Gastrointestinal NPO since: [place] - Anesthesia Assessment and Plan ASA Class: PS, III Anesthesia Type Plan: Spinal Planned difficult intubation/equipment available: No
--- NOTE | 2019-06-27 16:34 | ANES ---
Post Anesthesia Assessment - Vital Signs Vitals: Last Vital Signs Temp 36.3 C 06/27/19 15:55 Pulse 66 06/27/19 16:10 Resp 16 06/27/19 16:10 BP 180/76 H 06/27/19 16:10 Pulse Ox 95 06/27/19 16:10 Airway Patency: Normal - Mental Status Level Of Consciousness: Awake - Pain Level Pain Score: 0 - N/V Assessment Nausea/Vomiting Presence: None Dehydration:: No
[2019-06-27] MEDS: ceFAZolin SODIUM 1 GM in DEXTROSE 5 % IN WATER 100 ML IV SCH ×4 (17:41→23:17)
[2019-06-27] MEDS: TAMSULOSIN HCL 0.4 MG CAP.SR.24H PO SCH (20:19)
[2019-06-27] MEDS: DIVALPROEX SODIUM 500 MG TAB.SR.24H PO SCH (20:19)
[2019-06-27] MEDS: SENNOSIDES/DOCUSATE SODIUM 1 TAB TABLET PO SCH (20:19)
[2019-06-27] MEDS: MELATONIN 3,000 MCG TABLET PO SCH (20:19)
--- NOTE | 2019-06-27 23:04 | PN ---
Subjective - Date and Time Seen Date: 06/27/19 Time: 22:41 Subjective Narrative: Patient resting comfortably in bed following surgery. He is drowsy but arousable. Will reassess pain and function in the morning. He did very well with surgery. Vital signs are stable. Blood pressure has been elevated. Restarted home meds including amlodipine. Currently in negative pressure room while awaiting covid test results. Patient is afebrile. Objective Objective Narrative: Patient sleeping but arousable. Denies pain currently. Protecting airway, afebrile, no cough or fevers. - Review of Systems Respiratory: Reports: No Symptoms Reported Cardiac: Reports: No Symptoms Reported Abdominal: Reports: No Symptoms Reported Musculoskeletal Complaints: Reports: Joint Pain - Vitals Vitals: Last Vital Signs Temp 37.3 C 06/27/19 19:40 Pulse 73 06/27/19 22:18 Resp 18 06/27/19 19:40 BP 173/69 H 06/27/19 22:18 Pulse Ox 99 06/27/19 19:40 - Exam Constitutional: Present: Alert, Oriented x3, Somnolent, Elderly Respiratory: Present: lungs clear, normal breath sounds Cardiovascular/Chest: Present: regular rate, rhythm, systolic murmur Abdomen: Present: Normal bowel sounds, soft, nontender, nondistended Appearance: Present: appropriate appearance, impaired insight Cauti Physician Documentation - Urinary Catheter Management Coude Date of Insertion: 06/26/19 Time of Insertion: 17:15 Assessment/Plan Plan Narrative: Patient did well through surgery. Resting comfortably. Ortho managing pain and monitoring patient, appreciate their help. Restart home medications for HTN, Seizure ppx, GERD. SCDs for DVT ppx. Repeat H/H and BMP in the am. -continue Hydralazine as needed for systolic > 160 Nurse to call with questions or concerns. - Problems/Diagnosis (1) Fracture, intertrochanteric, right femur Problem: Acute (2) Acute kidney injury Problem: Acute (3) Seizures Problem: Chronic (4) Essential hypertension Problem: Chronic (5) Mild mental retardation Problem: Chronic (6) COPD (chronic obstructive pulmonary disease) Problem: Chronic
[2019-06-27] MEDS: amLODIPine BESYLATE 10 MG TABLET PO SCH (23:17)
[2019-06-28] MEDS: HYDROcodone/ACETAMINOPHEN 1 EACH TABLET PO PRN ×4 (01:48→21:47)
[2019-06-28] MEDS: ceFAZolin SODIUM 1 GM in DEXTROSE 5 % IN WATER 100 ML IV SCH ×2 (05:19)
[2019-06-28 06:28] LABS: Hematocrit 29.5 % (42.0-52.0); Hemoglobin 9.6 gm/dL (13.5-18.0); Mean Corpuscular Hemoglobin 31.9 pg (27-31); Mean Corpuscular Hgb Conc 32.5 g/dl (32-36); Platelet Count 209 K/mm3 (150-450); Red Blood Count 3.01 M/mm3 (4.7-6.0); White Blood Count 10.9 K/mm3 (4.0-10.5)
[2019-06-28 06:35] LABS: Anion Gap 11.6 mmol/L (6.8-13.8); BUN/Creatinine Ratio 10.6 (9.0-21.6); Calcium * 8.2 mg/dL (7.9-10.9); Carbon Dioxide 25.9 mmol/L (24-32.6); Estimated Creat Clear 62.5; Potassium 3.5 mmol/L (3.4-4.6)
[2019-06-28] MEDS: PANTOPRAZOLE SODIUM 20 MG TABLET.DR PO SCH (07:05)
[2019-06-28] MEDS: TOLTERODINE TARTRATE 2 MG CAPSULE PO SCH (08:47)
[2019-06-28] MEDS: FOLIC ACID 1 MG TABLET PO SCH (08:47)
[2019-06-28] MEDS: FAMOTIDINE 20 MG TABLET PO SCH ×2 (08:47→20:11)
[2019-06-28] MEDS: amLODIPine BESYLATE 10 MG TABLET PO SCH (08:47)
[2019-06-28] MEDS: ESCITALOPRAM OXALATE 10 MG TAB PO SCH (08:47)
[2019-06-28] MEDS: THIAMINE HCL 100 MG TABLET PO SCH (08:47)
[2019-06-28] MEDS: DIVALPROEX SODIUM 250 MG TABLET.DR PO SCH (08:47)
[2019-06-28] MEDS: ENOXAPARIN SODIUM 40 MG/0.4 ML SYRG SC SCH (13:57)
--- NOTE | 2019-06-28 14:49 | PN ---
Subjective - Date and Time Seen Date: 06/28/19 Time: 07:55 Subjective Narrative: 79-year-old man with mild mental impairment. Underwent right hemiarthroplasty for a femoral neck fracture. Surgery was uncomplicated patient has been recovering well. He does note he has mild pain, he appears to be resting comfortably otherwise. Notes no other acute concerns currently. Note patient is mildly difficult to obtain an accurate history due to mental/cognition impairments. Objective - Vitals Vitals: Last Vital Signs Temp 37.9 C 06/28/19 11:09 Pulse 78 06/28/19 11:09 Resp 20 06/28/19 11:09 BP 101/53 06/28/19 11:09 Pulse Ox 98 06/28/19 11:09 - Abnormal Lab Findings Abnormal Lab Findings: Abnormal Lab Results 06/28/19 06/28/19 Range/Units 06:24 06:24 WBC 10.9 H (4.0-10.5) K/mm3 RBC 3.01 L (4.7-6.0) M/mm3 Hgb 9.6 L (13.5-18.0) gm/dL Hct 29.5 L (42.0-52.0) % MCH 31.9 H (27-31) pg Random Glucose 122 H (70-110) mg/dL - Exam Constitutional: Present: Alert, Cooperative, No distress Extremity: Present: other - RLE--> sensation intact light touch, discomfort refill brisk, diffuse tenderness about right hip, bandages in place clean/dry/intact, 5/5 ankle plantarflexion/dorsiflexion Eye contact: Present: cooperative Cauti Physician Documentation - Urinary Catheter Management Coude Date of Insertion: 06/26/19 Time of Insertion: 17:15 Date of Removal: 06/28/19 Time of Removal: 09:00 Assessment/Plan Plan Narrative: -79 y/o male postop day 1 status post right hemiarthroplasty for a femoral neck fracture -Weightbearing as tolerated, assistive device PRN, anterior precautions -DT/OT progress as tolerated -Pain medication p.o. PRN -P.o. diet as tolerated -Patient continues in isolation room until COVID-19 test has returned, notes he is under investigation and will aid in his placement for [facility] facility -DVT prophylaxis: SCDs in bed, SHELBY hose knee-high, Lovenox -Continue with postoperative dressings in place, change every 2 to 3 days with dry gauze and tape or PRN -Disposition: Once all PT/OT goals have been met, patient is able to be placed to a [facility] facility, pain is well controlled, p.o. diet returned he will be discharged - Problems/Diagnosis (1) Fracture of right hip Problem: Acute Qualifiers: Encounter type: initial encounter Fracture type: closed Qualified Code(s): S72.001A - Fracture of unspecified part of neck of right femur, initial encounter for closed fracture
[2019-06-28] MEDS: SENNOSIDES/DOCUSATE SODIUM 1 TAB TABLET PO SCH (20:11)
[2019-06-28] MEDS: MELATONIN 3,000 MCG TABLET PO SCH (20:11)
[2019-06-28] MEDS: DIVALPROEX SODIUM 500 MG TAB.SR.24H PO SCH (20:11)
[2019-06-28] MEDS: ACETAMINOPHEN 500 MG TABLET PO PRN (20:11)
--- NOTE | 2019-06-28 22:42 | PN ---
Subjective - Date and Time Seen Date: 06/28/19 Time: 11:33 Subjective Narrative: Patient pleasant, sitting comfortable in his chair. He has minimal pain. He states that he feels well. he denies cough, sob, fevers.His vital signs are stable Objective - Review of Systems Generalized/Overall Review: Denies: Chills, Fever EENTM: Reports: No Symptoms Reported Respiratory: Denies: Cough, Shortness of Breath Cardiac: Reports: No Symptoms Reported Abdominal: Denies: Nausea, Abdominal Pain, Constipation Genitourinary Symptoms: Reports: No Symptoms Reported Musculoskeletal Complaints: Reports: Joint Pain - right hip Neurological: Reports: No Symptoms Reported - Vitals Vitals: Last Vital Signs Temp 37.7 C 06/28/19 21:49 Pulse 70 06/28/19 21:49 Resp 18 06/28/19 21:49 BP 155/60 H 06/28/19 21:49 Pulse Ox 98 06/28/19 21:49 - Abnormal Lab Findings Abnormal Lab Findings: Abnormal Lab Results 06/28/19 06/28/19 Range/Units 06:24 06:24 WBC 10.9 H (4.0-10.5) K/mm3 RBC 3.01 L (4.7-6.0) M/mm3 Hgb 9.6 L (13.5-18.0) gm/dL Hct 29.5 L (42.0-52.0) % MCH 31.9 H (27-31) pg Random Glucose 122 H (70-110) mg/dL - Exam Constitutional: Present: Alert, Elderly, Thin and frail Respiratory: Present: lungs clear, normal breath sounds, no respiratory distress Cardiovascular/Chest: Present: regular rate, rhythm, systolic murmur Abdomen: Present: Normal bowel sounds, soft, nontender Skin Exam: Present: other - incision c/d/i. covered Appearance: Present: appropriate appearance, impaired insight Eye contact: Present: cooperative, good eye contact, other - pleasant Cauti Physician Documentation - Urinary Catheter Management Coude Date of Insertion: 06/26/19 Time of Insertion: 17:15 Date of Removal: 06/28/19 Time of Removal: 09:00 Assessment/Plan Plan Narrative: Patient did well over night, p/o day 1. He is currently Resting comfortably. Pain well controlled and patient is stable. Restarted home medications for HTN, Seizure ppx, GERD. SCDs for DVT ppx. bp significanttly better controlled. Acute kidney injury resolved. Hemoglobin dropped from 11.4 down to 9.6. Covid still pending. Resp and o2 sats wnl. Vitals all stable and he is afebrile. Restarted diet. Nurse to call with questions or concerns. - Problems/Diagnosis (1) Fracture, intertrochanteric, right femur Problem: Acute (2) Acute kidney injury Problem: Resolved (3) Seizures Problem: Chronic (4) Essential hypertension Problem: Chronic (5) Mild mental retardation Problem: Chronic (6) COPD (chronic obstructive pulmonary disease) Problem: Chronic
[2019-06-29] MEDS: HYDROcodone/ACETAMINOPHEN 1 EACH TABLET PO PRN ×3 (04:10→20:15)
[2019-06-29 06:23] LABS: Hematocrit 28.2 % (42.0-52.0); Hemoglobin 9.1 gm/dL (13.5-18.0); Mean Cell Volume 98.3 fl (78-100); Mean Corpuscular Hemoglobin 31.7 pg (27-31); Mean Corpuscular Hgb Conc 32.3 g/dl (32-36); Mean Platelet Volume 9.9 fl (8-11.3); Platelet Count 201 K/mm3 (150-450); Red Blood Count 2.87 M/mm3 (4.7-6.0); Red Cell Distribution Width 13.6 % (11.5-14.0); White Blood Count 11.9 K/mm3 (4.0-10.5)
[2019-06-29] MEDS: PANTOPRAZOLE SODIUM 20 MG TABLET.DR PO SCH (06:29)
[2019-06-29 06:49] LABS: Anion Gap 12.2 mmol/L (6.8-13.8); BUN/Creatinine Ratio 14.5 (9.0-21.6); Calcium * 8.2 mg/dL (7.9-10.9); Carbon Dioxide 24.9 mmol/L (24-32.6); Estimated Creat Clear 53.4; Potassium 4.1 mmol/L (3.4-4.6)
--- NOTE | 2019-06-29 08:54 | PN ---
Progesrosy Note - Interim Date: 06/29/19 Time: 08:51 Narrative: 06/29/19 08:51 79-year-old male postop day 2 status post right hemiarthroplasty for femoral neck fracture. Patient is doing well plan to be discharged today to alf facility. This be for ongoing care. Patient exam today of right lower extremity--> sensation intact light touch, 4+/5 knee flexion/extension, diffuse mild tenderness about right hip, postoperative bandages clean/dry/intact, distal capillary refill brisk. Patient will continue with the following recommendations. -79 y/o male postop day 1 status post right hemiarthroplasty for a femoral neck fracture -Weightbearing as tolerated, assistive device PRN, anterior precautions -PT/OT progress as tolerated -Pain medication p.o. PRN -P.o. diet as tolerated -COVID test negative, continue with standard precautions -DVT prophylaxis: Lovenox until 4 weeks postop, will reevaluate at 2-week follow-up in orthopedic office for further care -Continue with postoperative dressings in place, change every 2 to 3 days with dry gauze and tape or PRN -Monitor incision for significant erythema or drainage, call orthopedic office with any further questions -Follow-up orthopedic outpatient office at 2 weeks postop -Disposition: senior living facility once medically stable and all goals met
[2019-06-29] MEDS: TOLTERODINE TARTRATE 2 MG CAPSULE PO SCH (09:05)
[2019-06-29] MEDS: ESCITALOPRAM OXALATE 10 MG TAB PO SCH (09:05)
[2019-06-29] MEDS: FOLIC ACID 1 MG TABLET PO SCH (09:05)
[2019-06-29] MEDS: FAMOTIDINE 20 MG TABLET PO SCH ×2 (09:07→20:15)
[2019-06-29] MEDS: THIAMINE HCL 100 MG TABLET PO SCH (09:07)
[2019-06-29] MEDS: DIVALPROEX SODIUM 250 MG TABLET.DR PO SCH (09:08)
[2019-06-29] MEDS: amLODIPine BESYLATE 10 MG TABLET PO SCH (09:09)
[2019-06-29] MEDS: ENOXAPARIN SODIUM 40 MG/0.4 ML SYRG SC SCH (13:23)
[2019-06-29] MEDS: ACETAMINOPHEN 500 MG TABLET PO PRN ×2 (15:16→23:16)
--- NOTE | 2019-06-29 16:43 | PN ---
Subjective - Date and Time Seen Date: 06/29/19 Time: 16:43 Subjective Narrative: Patient resting comfortably in bed. Alert and oriented x2 and pleasant. He does have a slight cough but denies shortness of breath. States his pain is well controlled although it does "hurt some "when he moves it at times. His vital signs been much improved aside from 1 random fever this afternoon. Patient was having decreased urine outflow so we will go ahead and check a UA on him but otherwise he looks okay and is stable. His white count did bump up a little bit overnight. Objective - Review of Systems Generalized/Overall Review: Reports: Fever - X1. Denies: Weakness, Chills EENTM: Reports: No Symptoms Reported Respiratory: Reports: Cough. Denies: Shortness of Breath, Wheezing Cardiac: Reports: No Symptoms Reported Abdominal: Denies: Nausea, Vomiting Genitourinary Symptoms: Denies: Burning, Urgency, Frequency Musculoskeletal Complaints: Reports: Joint Pain - Hip pain Neurological: Reports: No Symptoms Reported Skin: Reports: No Symptoms Reported - Vitals Vitals: Last Vital Signs Temp 38.2 C H 06/29/19 14:44 Pulse 86 06/29/19 14:44 Resp 20 06/29/19 14:44 BP 129/55 06/29/19 14:44 Pulse Ox 93 06/29/19 14:44 - Abnormal Lab Findings Abnormal Lab Findings: Abnormal Lab Results 06/29/19 Range/Units 06:20 WBC 11.9 H (4.0-10.5) K/mm3 RBC 2.87 L (4.7-6.0) M/mm3 Hgb 9.1 L (13.5-18.0) gm/dL Hct 28.2 L (42.0-52.0) % MCH 31.7 H (27-31) pg - Exam Constitutional: Present: Alert, Cooperative, Elderly. Absent: Oriented x3 - X2 ENT Exam: Present: hard of hearing. Absent: nasal congestion, nasal drainage Respiratory: Present: decreased breath sounds - Bases. Absent: crackles, wheezing Cardiovascular/Chest: Present: regular rate, rhythm, systolic murmur Abdomen: Present: soft, nontender, nondistended Skin Exam: Present: normal color, warm/dry Appearance: Present: appropriate appearance, impaired insight Eye contact: Present: cooperative, good eye contact Thoughts: Present: normal thought pattern, normal mood /affect Cauti Physician Documentation - Urinary Catheter Management [place] Date of Insertion: 06/26/19 Time of Insertion: 17:15 Date of Removal: 06/28/19 Time of Removal: 09:00 Assessment/Plan Plan Narrative: Postop day 2patient's pain is well controlled and from a surgical standpoint appears to be doing very well. Continue Vandervoort as directed for pain management, continue treatment precautions. Covid was negative and patient has been cleared for discharge to nursing facility by Ortho. Hypertensionmuch better controlled with restart of all meds. Feverunsure of the source. Would assume is likely atelectasis especially with his decreased air movement from his COPD and and decreased effort. No crackles or wheezing heard. UA ordered which showed some bacteria in the urine but otherwise was clean. Fever was a one-time event, will continue to monitor but antibiotics not warranted at this time. Continue chronic medications. Vital signs are stable, maintaining good sats. Continue SCDs and Lovenox for DVT prophylaxis. Nurse to call questions or concerns. - Problems/Diagnosis (1) Fracture, intertrochanteric, right femur Problem: Acute (2) Acute kidney injury Problem: Resolved (3) Seizures Problem: Chronic (4) Essential hypertension Problem: Chronic (5) Mild mental retardation Problem: Chronic (6) COPD (chronic obstructive pulmonary disease) Problem: Chronic
[2019-06-29 17:46] LABS: Urine Bilirubin Negative (NEGATIVE); Urine Blood Negative /ul (NEGATIVE); Urine Ketone 5 mg/dL (NEGATIVE); Urine Nitrite Negative (NEGATIVE); Urine Protein Negative (NEGATIVE); Urine Urobilinogen Normal (NORMAL)
[2019-06-29 18:29] LABS: Urine Appearance Clear (CLEAR); Urine Bacteria 3+; Urine Color Yellow; Urine RBC TRACE /hpf (0-5); Urine WBC TRACE /hpf (0-5)
[2019-06-29] MEDS: MELATONIN 3,000 MCG TABLET PO SCH (20:15)
[2019-06-29] MEDS: SENNOSIDES/DOCUSATE SODIUM 1 TAB TABLET PO SCH (20:15)
[2019-06-29] MEDS: DIVALPROEX SODIUM 500 MG TAB.SR.24H PO SCH (20:15)
[2019-06-30] MEDS: PANTOPRAZOLE SODIUM 20 MG TABLET.DR PO SCH (06:42)
[2019-06-30] MEDS: ACETAMINOPHEN 500 MG TABLET PO PRN (06:54)
[2019-06-30] MEDS: ESCITALOPRAM OXALATE 10 MG TAB PO SCH (08:31)
[2019-06-30] MEDS: FOLIC ACID 1 MG TABLET PO SCH (08:31)
[2019-06-30] MEDS: amLODIPine BESYLATE 10 MG TABLET PO SCH (08:31)
[2019-06-30] MEDS: DIVALPROEX SODIUM 250 MG TABLET.DR PO SCH (08:31)
[2019-06-30] MEDS: THIAMINE HCL 100 MG TABLET PO SCH (08:31)
[2019-06-30] MEDS: FAMOTIDINE 20 MG TABLET PO SCH (08:31)
[2019-06-30] MEDS: TOLTERODINE TARTRATE 2 MG CAPSULE PO SCH (08:31)
--- NOTE | 2019-06-30 09:24 | DS ---
(1) Fracture, intertrochanteric, right femur Problem: Acute (2) Acute kidney injury Problem: Resolved (3) Seizures Problem: Chronic (4) Essential hypertension Problem: Chronic (5) Mild mental retardation Problem: Chronic (6) COPD (chronic obstructive pulmonary disease) Problem: Chronic Date of Discharge:: 06/30/19 Hospital Course: 79-year-old male with history of seizure disorder, hypertension, GERD, mild cognitive deficit; presented to the hospital following ground-level fall which resulted in a right slightly impacted, mildly displaced intertrochanteric neck fracture. Ortho was consulted who took him back and performed a right hemiarthroplasty of the hip which he tolerated well. Patient has been stable since surgery. His pain is well controlled. He had a negative COVID testing. He did have 2 abnormal temperatures but unsure of the cause, assume atelectasis following surgery as patient has been afebrile the majority the time and has no active sources of infection that we can identify. Patient did have a UA checked which was negative for infection. Patient's vital signs been stable and he is been afebrile aside from the mildly elevated temps that resolved on their own. Patient's pain is been well controlled with oral medications which she will continue at nursing facility. Patient need to be on Lovenox for 4 weeks. Patient need to follow with Dr. Lazaro in 2 weeks. No other changes were made to his medications. Procedures Performed: see notes below - Right hip hemiarthroplasty Results and Findings: Lab Pending Results 06/26/19 13:45: WBC 9.5, RBC 3.58 L, Hgb 11.4 L, Hct 35.0 L, MCV 97.8, MCH 31.8 H, MCHC 32.6, RDW 13.6, Plt Count 304, MPV 9.5, Immature Gran % (Auto) 0.50 H, Immature Gran # (Auto) 0.05 H, Neutrophils % 75.0, Lymphocytes % 18.4 L, Monocytes % 4.1, Eosinophils % 1.4, Basophils % 0.6, Nucleated RBC % 0.0, Neutrophils # 7.1 H, Lymphocytes # 1.75, Monocytes # 0.4, Eosinophils # 0.1, Absolute Basophils 0.1 06/26/19 13:45: Sodium 140, Plasma Sodium 140, Potassium 4.2, Chloride 103, Carbon Dioxide 29.7, Anion Gap 11.5, BUN 23, Creatinine 1.54 H, Est GFR (Non-Af Amer) 46 L, BUN/Creatinine Ratio 14.9, Random Glucose 102, Calcium 9.9, Calcium Adj for Albumin 9.8, Total Bilirubin 0.2, AST 17, ALT 13 L, Alkaline Phosphatase 61, Total Protein 7.4, Albumin 3.7 06/26/19 13:45: PT 10.0, INR (Anticoag Therapy) 1.01, PTT ([place]) 22.2 L 06/27/19 14:11: SARS-CoV-2 (PCR) Not detected 06/27/19 14:43: Pathology Specimen Spec to path 06/28/19 06:24: WBC 10.9 H, RBC 3.01 L, Hgb 9.6 L, Hct 29.5 L, MCV 98.0, MCH 31.9 H, MCHC 32.5, RDW 14.0, Plt Count 209, MPV 10.0 06/28/19 06:24: Sodium 139, Plasma Sodium 139, Potassium 3.5, Chloride 105, Carbon Dioxide 25.9, Anion Gap 11.6, BUN 10 D, Creatinine 0.94, Est GFR (Non-Af Amer) 82 D, BUN/Creatinine Ratio 10.6, Random Glucose 122 H, Calcium 8.2 06/29/19 06:20: WBC 11.9 H, RBC 2.87 L, Hgb 9.1 L, Hct 28.2 L, MCV 98.3, MCH 31.7 H, MCHC 32.3, RDW 13.6, Plt Count 201, MPV 9.9 06/29/19 06:20: Sodium 134, Plasma Sodium 134, Potassium 4.1, Chloride 101, Carbon Dioxide 24.9, Anion Gap 12.2, BUN 16 D, Creatinine 1.10, Est GFR (Non-Af Amer) 68, BUN/Creatinine Ratio 14.5, Random Glucose 94, Calcium 8.2 06/29/19 17:30: Urine Color Yellow, Urine Appearance Clear, Urine pH 6.0, Ur Specific [place] 1.010, Urine Protein Negative, Urine Glucose (UA) Negative, Urine Ketones 5, Urine Blood Negative, Urine Nitrate Negative, Urine Bilirubin Negative, Urine Urobilinogen Normal, Ur Leukocyte Esterase Negative, Urine RBC Trace, Urine WBC Trace, Ur Epithelial Cells Trace, Urine Bacteria 3+ H Discharge Location: [facility] Disposition: SNF Condition: Stable Level of Care: SNF Discharge Activity: Partial-Weight bearing - anterior hip precautions, WBT Discharge Diet: General/regular food [facility] Therapy: Physical Therapy, Occupation Therapy Additional Patient Instructions (free text): SNF to [facility] for PT and OT to evaluate and treat. Follow up Orthopedic Dr Lazaro office appointment on WednesdayJuly 13 at 10:00am. PCP Dr. Sewell. Please have [facility] call to set up teleahealth video appointment with Dr Sewell. Ortho instructions: -Weightbearing as tolerated, assistive device PRN, anterior precautions -PT/OT progress as tolerated -Pain medication p.o. PRN -P.o. diet as tolerated -COVID test negative, continue with standard precautions -DVT prophylaxis: Lovenox until 4 weeks postop, will reevaluate at 2-week follow-up in orthopedic office for further care -Continue with postoperative dressings in place, change every 2 to 3 days with dry gauze and tape or PRN -Monitor incision for significant erythema or drainage, call orthopedic office with any further questions Prescriptions (Any new or edited meds): Enoxaparin Sodium [Lovenox] 40 mg SC Q24H 30 Days #30 disp.syrin Transmission Status: Pending to [facility] HYDROcodone/ACETAMINOPHEN [[place] 5-325] 1 - 2 ea PO Q6H PRN #60 tab PRN Reason: Pain Transmission Status: Received by [facility] Complete Home Medications List: Complete Home Medication List: thiamine HCl (vitamin B1) 100 mg tablet 100 mg PO DAILY #90 tab 08/30/18 acetaminophen 500 mg tablet 500 mg PO BID #60 tab 09/02/18 capsaicin 0.025 % topical patch 1 patch TP BID PRN MDD 0.050% 11/14/18 peg [id number] 1 %-0.2 %-0.2 % eye drops 1 drp OP QID 11/14/18 ipratropium 0.5 mg-albuterol 3 mg (2.5 mg base)/3 mL nebulization soln 3 ml IH QID #180 ml 11/29/18 Durable Medical Equipment 0 .ROUTE .MEDSUPPLY #1 ea 12/21/18 vitamin B complex 1 tab PO .COMPLEX #15 tab 04/03/19 escitalopram oxalate 20 mg tablet 20 mg PO DAILY #90 tab 05/11/19 famotidine 20 mg tablet 20 mg PO BID #180 tab 05/11/19 folic acid 1 mg tablet 1 mg PO DAILY #30 tab 05/11/19 loratadine 10 mg tablet 10 mg PO DAILY #90 tab 05/11/19 melatonin 5 mg capsule 5 mg PO QHS #90 cap 05/11/19 mirtazapine 30 mg tablet 30 mg PO DAILY #90 tab 05/11/19 L.acidoph, paracasei,B. lactis 10 billion cell capsule 1 cell PO DAILY #90 cap 05/12/19 omeprazole 20 mg tablet,delayed release 20 mg PO DAILY #90 tab 05/12/19 tamsulosin 0.4 mg capsule 0.4 mg PO HS #90 cap 05/12/19 Ascorbic Acid [Vitamin C] 500 mg PO BID 06/26/19 Aspirin [Aspirin EC] 325 mg PO BID 06/26/19 Calcium Carbonate/Vitamin D3 [Calcium 600-Vit D3 800 Caplet] 1 ea PO BID 06/26/19 Divalproex Sodium [Depakote] 500 mg PO DAILY 06/26/19 Fesoterodine Fumarate [Toviaz] 4 mg PO DAILY 06/26/19 Vitamin B Complex [Balanced B-50] 1 ea PO Q2D 06/26/19 amLODIPine BESYLATE [Norvasc] 10 mg PO DAILY 06/26/19 Acetaminophen [Tylenol] 1,000 mg PO Q6H PRN tab 06/30/19 Enoxaparin Sodium [Lovenox] 40 mg SC Q24H 30 Days #30 disp.syrin 06/30/19 HYDROcodone/ACETAMINOPHEN [[place] 5-325] 1 - 2 ea PO Q6H PRN #60 tab 06/30/19
[2019-06-30 09:28] VITALS: BP 139/53
== END 2019-06-30 10:00 ==
LOC: ER 13:14 → MS 14:24
PROVIDERS: ADMIT Family Medicine; ATTEND Family Medicine